=== PATIENT | male | born 1980 | race Caucasian/White ===

== ENCOUNTER 2018-09-17 14:50 | Emergency (ER) | payer BC, OTHER ==
[2018-09-17 14:59] VITALS: BP 129/87
--- NOTE | 2018-09-17 15:49 | UC ---
Respiratory Complaint HPI - HPI Summary HPI Summary: Patient is a 38-year-old otherwise healthy male presenting to the ED with a 2 week history of cough, congestion and sinus pressure. He endorses a fever over the past 2 days, with the highest fever at home of 101.2. On arrival to the ED today his temperature reached 100.2. He has not been using Tylenol or ibuprofen with relief. He has not been using any [id number]'s for relief. He works at a [employer] and endorses sick contacts. He states his sinus congestion and pressure have improved, however his chest congestion and cough is worse. He denies any CP or SOB. He denies any respiratory history of cardiac history. Patient is a smoker. He is asking for smoking cessation. - History of Current Complaint Chief Complaint: UCRespiratory Stated Complaint: COUGH Time Seen by Provider: 09/17/18 15:09 Hx Obtained From: Patient Onset/Duration: Sudden Onset Timing: Constant Severity Initially: Mild Severity Currently: Mild Pain Intensity: 0 Pain Scale Used: 0-10 Numeric Character: Cough: Nonproductive Associated Signs And Symptoms: Positive: URI, Nasal Congestion, Sinus Discomfort - Risk Factors Pulmonary Embolism Risk Factors: Smoking Cardiac Risk Factors: Smoking Tuberculosis Risk Factors: Smoking - Allergies/Home Medications Allergies/Adverse Reactions: Allergies Allergy/AdvReac Type Severity Reaction Status Date / Time No Known Allergies Allergy Verified 09/17/18 14:58 PMH/Surg Hx/FS Hx/Imm Hx Previously Healthy: Yes - Surgical History Surgical History: Yes Surgery Procedure, Year, and Place: hydronephrosis bilateral - Social History Alcohol Use: None Substance Use Type: None Smoking Status (MU): Current Every Day Smoker Type: Cigarettes Amount Used/How Often: 10 cigarettes Length of Time of Smoking/Using Tobacco: 20+ years Have You Smoked in the Last Year: Yes Review of Systems All Other Systems Reviewed And Are Negative: Yes Constitutional: Positive: Negative Skin: Positive: Negative Respiratory: Positive: Cough Cardiovascular: Positive: Negative Gastrointestinal: Positive: Negative Motor: Positive: Negative Neurovascular: Positive: Negative Psychological: Positive: Negative Is Patient Immunocompromised?: No Physical Exam Triage Information Reviewed: Yes Appearance: Well-Appearing, Well-Nourished Vital Signs: Initial Vital Signs Temp 100.2 F 09/17/18 14:55 Pulse 95 09/17/18 14:55 Resp 18 09/17/18 14:55 BP 129/87 09/17/18 14:55 Pulse Ox 96 09/17/18 14:55 Vital Signs Reviewed: Yes Eye Exam: Normal ENT: Positive: Pharynx normal, TMs normal Neck exam: Normal Neck: Positive: Supple, No Lymphadenopathy Respiratory Exam: Normal Respiratory: Positive: Chest non-tender, Lungs clear Cardiovascular Exam: Normal Cardiovascular: Positive: RRR Musculoskeletal Exam: Normal Musculoskeletal: Positive: Strength Intact Psychological: Positive: Normal Response To Family Skin Exam: Normal UC Diagnostic Evaluation - Laboratory O2 Sat by Pulse Oximetry: 96 Respiratory Course/Dx - Course Course Of Treatment: During the course of treatment, the patient's evaluated for smoking cessation as well as cough and congestion. On physical examination , patient appears well, however slightly diaphoretic. His temperature on arrival was 100.2. He states he has not been taking any medications at home for relief. Lungs CTA, R. No sinus pressure or tenderness on palpation to the maxillary or frontal sinuses. He is given azithromycin as he has had a fever and symptoms have been present 2 weeks. He is also requesting smoking cessation. Nicotine patch 30 days is prescribed. I have encouraged him after 6 weeks to reduce this dose through his PCP. - Differential Dx/Diagnosis Provider Diagnosis: Cough, Needs smoking cessation education Discharge - Sign-Out/Discharge Documenting (check all that apply): Patient Departure All imaging exams completed and their final reports reviewed: No Studies - Discharge Plan Condition: Stable Disposition: HOME Prescriptions: Azithromyxin LILIANA (NF) [Z-Liliana (Zithromax) 250 mg tabs #6] 2 tab PO .TODAY, THEN 1 DAILY #6 tab Nicotine PATCH 21 MG/24 HR* 21 mg TRANSDERM DAILY #30 patch Patient Education Materials: How to Stop Smoking (ED) Referrals: No Primary Care Phys,NOPCP [Primary Care Provider] - Additional Instructions: Z-Liliana: As prescribed Nicotene Patch: Apply one patch each morning to any non-hairy skin site; rotate the site daily to avoid skin irritation, the most common side effect. Aunb-[id number] hydrocortisone 1% cream or ointment topically may be used to relieve skin irritation if it occurs. You will likely after 6 weeks need to be transitioned down to a lower dose of nicotene. Please see your PCP about this - Billing Disposition and Condition Condition: STABLE Disposition: Home - Attestation Statements Provider Attestation: I was available for consult. This patient was seen by the JEANETTE. The patient was not presented to, seen by, or examined by me. -Oscar
== END 2018-09-17 15:30 | disposition home or self-care (01) ==
LOC: UCEAST 14:50
DX: R05 Cough (principal); F17.210 Nicotine dependence, cigarettes, uncomplicated
CPT/HCPCS: 99202; G0463